=== PATIENT | male | born 1945 | race Caucasian/White ===

== ENCOUNTER → 2018-03-25 | Outpatient (CLI) | payer OTHER | DX: J38.3 Other diseases of vocal cords (principal); E04.2 Nontoxic multinodular goiter; R91.1 Solitary pulmonary nodule; J43.2 Centrilobular emphysema; M43.12 Spondylolisthesis, cervical region; M48.02 Spinal stenosis, cervical region; S22.41XA Multiple fractures of ribs, right side, initial encounter for closed fracture ==

== ENCOUNTER → 2018-11-29 | Outpatient (CLI) | payer OTHER | LOC: FIMAGING 11:19 | PROVIDERS: ATTEND Neurological Surgery | DX: M50.31 Other cervical disc degeneration, high cervical region (principal); M43.12 Spondylolisthesis, cervical region ==